=== PATIENT | female | born 1975 | race American Indian/Alaskan Native ===

== ENCOUNTER 2016-08-28 12:10 | Emergency (ER) | payer SELFPAY ==
--- NOTE | 2016-08-28 16:54 | Emergency Department Report ---
ED Female HPI - General Chief complaint: Back Pain/Injury Stated complaint: BLOOD IN URINE Time Seen by Provider: 08/28/16 16:49 Source: patient Mode of arrival: Ambulatory Limitations: No Limitations - History of Present Illness Initial comments: Patient presents with dysuria, polyuria, urinary urgency and frequency. She states that she has seen pink on toilet paper when she wipes after urinating. She states she has had a UTI in the past and this feels similar. She denies history of diabetes at this time. MD Complaint: dysuria -: Sudden Are you Now?: No Associated Symptoms: denies other symptoms - Related Data Previous Rx's Medication Instructions Recorded Last Taken Type Sulfamethoxazole/Trimethoprim 1 each PO BID #14 tablet 08/28/16 Unknown Rx [Bactrim DS TAB] Allergies Allergy/AdvReac Type Severity Reaction Status Date / Time No Known Allergies Allergy Unverified 01/30/14 22:57 ED Review of Systems ROS: Stated complaint: BLOOD IN URINE Other details as noted in HPI Constitutional: denies: chills, fever Respiratory: denies: cough, shortness of breath, wheezing Cardiovascular: denies: chest pain, palpitations Genitourinary: as per HPI, urgency, dysuria, frequency Musculoskeletal: denies: back pain, joint swelling, arthralgia Skin: denies: rash, lesions Neurological: denies: headache, weakness, paresthesias ED Past Medical Hx - Past Medical History Hx Hypertension: Yes (with ) Hx HIV: Yes (2005) Additional medical history: Irregular heart beat - Surgical History Additional Surgical History: D&C 2000, Tubaligation 2004 - Social History Smoking Status: Never Smoker Substance Use Type: None - Medications Home Medications: Home Medications Medication Instructions Recorded Confirmed Last Taken Type Sulfamethoxazole/Trimethoprim 1 each PO BID #14 tablet 08/28/16 Unknown Rx [Bactrim DS TAB] ED Physical Exam - General Limitations: No Limitations General appearance: alert, in no apparent distress - Head Head exam: Present: atraumatic, normocephalic - Respiratory Respiratory exam: Present: normal lung sounds bilaterally. Absent: respiratory distress - Cardiovascular Cardiovascular Exam: Present: regular rate, normal rhythm. Absent: systolic murmur, diastolic murmur, rubs, gallop - GI/Abdominal GI/Abdominal exam: Present: soft, normal bowel sounds - Back Exam Back exam: Present: normal inspection, full ROM. Absent: tenderness, CVA tenderness (R), CVA tenderness (L) - Neurological Exam Neurological exam: Present: alert, oriented X3 - Psychiatric Psychiatric exam: Present: normal affect, normal mood - Skin Skin exam: Present: warm, dry, intact, normal color. Absent: rash ED Course Vital Signs 08/28/16 12:20 Temperature 98.4 F Pulse Rate 95 H Respiratory 18 Rate Blood Pressure 126/64 O2 Sat by Pulse 95 Oximetry ED Medical Decision Making - Medical Decision Making Patient presents with UTI symptoms. Urinalysis WBCs are elevated I will give Bactrim twice a day 7 days. - Differential Diagnosis UTI, std Critical Care Time: No Critical care attestation.: If time is entered above; I have spent that time in minutes in the direct care of this critically ill patient, excluding procedure time. ED Disposition Clinical Impression: Urinary tract infection Disposition: DISCHARGED TO HOME OR SELFCARE Is pt being admited?: No Does the pt Need Aspirin: No Condition: Stable Instructions: Dysuria (ED), Urinary Tract Infection in Women (ED) Additional Instructions: Follow-up with your PCP if symptoms do not resolve. Follow up in the ED if nausea, fever, chills. Prescriptions: Sulfamethoxazole/Trimethoprim [Bactrim DS TAB] 1 each PO BID #14 tablet Referrals: PRIMARY CARE, [Primary Care Provider] - 3-5 Days [facility] [Outside] - 3-5 Days Time of Disposition: 18:01
[2016-08-28 17:47] LABS: Bacteria,Urine 3+ /HPF (Negative); Bilirubin,Urine NEG (Negative); Blood,Urine LG (Negative); Ketones,Urine NEG (Negative); Leukocyte Esterase,Urine LG (Negative); Mucus,Urine 2+ /HPF; Nitrite,Urine POS (Negative); Urobilinogen,Urine < 2.0 mg/dL (<2.0); WBC,Urine > 182.0 /HPF (0.0-6.0)
[2016-08-28 18:11] VITALS: BP 122/60
== END 2016-08-28 18:10 | disposition home or self-care (01) ==
LOC: ED 12:10
DX: N39.0 Urinary tract infection, site not specified (principal); I10 Essential (primary) hypertension; Z21 Asymptomatic human immunodeficiency virus [HIV] infection status; Z98.51 Tubal ligation status
CPT/HCPCS: 81001; 82962

== ENCOUNTER 2016-12-08 10:54 | Emergency (ER) | payer OTHER ==
[2016-12-08 14:07] LABS: Eosinophils % (Auto) 0.7 % (0.0-4.3)
[2016-12-08 14:20] LABS: Alanine Aminotransferase 9 units/L (7-56); Albumin 3.7 g/dL (3.9-5); Alkaline Phosphatase 81 units/L (35-129); Anion Gap 17 mmol/L; Bilirubin,Total 0.2 mg/dL (0.1-1.2); Blood Urea Nitrogen 9 mg/dL (7-17); Calcium 8.7 mg/dL (8.4-10.2); Carbon Dioxide 20 mmol/L (22-30); Chloride 103.4 mmol/L (98-107); Glucose 121 mg/dL (65-100); Potassium 3.7 mmol/L (3.6-5.0); Sodium 137 mmol/L (137-145); Total Protein 7.5 g/dL (6.3-8.2)
[2016-12-08 14:29] LABS: Hematocrit 29.8 % (30.3-42.9); Hemoglobin 8.7 gm/dl (10.1-14.3); Mean Corpuscular HGB Conc 29 % (30-34); Mean Corpuscular Hemoglobin 17 pg (28-32); Mean Corpuscular Volume 58 fl (79-97); Platelet Count 371 K/mm3 (140-440); Red Blood Count 5.12 M/mm3 (3.65-5.03); Red Cell Distribution Width 19.5 % (13.2-15.2); White Blood Count 12.6 K/mm3 (4.5-11.0)
[2016-12-08 14:30] LABS: Basophils % (Auto) 0.4 % (0.0-1.8)
[2016-12-08 15:14] LABS: Bacteria,Urine 1+ /HPF (Negative); Bilirubin,Urine NEG (Negative); Blood,Urine NEG (Negative); Ketones,Urine NEG (Negative); Leukocyte Esterase,Urine MOD (Negative); Mucus,Urine 2+ /HPF; Nitrite,Urine POS (Negative); Protein,Urine <15 mg/dL mg/dL (Negative); Urobilinogen,Urine < 2.0 mg/dL (<2.0)
--- NOTE | 2016-12-08 16:35 | Emergency Department Report ---
Entered by KERWIN TRUJILLO, acting as scribe for JOIE GONZALEZ NP. Chief Complaint: Medical Clearance Stated Complaint: MIGRAINE/NOSE BLEEDS Time Seen by Provider: 12/08/16 13:19 - HPI History of Present Illness: Patient presents to the ED c/o a headache that began 1 week ago. Associated symptoms include left underarm abscess, dizziness, night sweats and nose bleeds that began 1 month ago. Notes she is not on any retro-viral medication. Patient states that she doesn't have an infectious docto. LMP in October. - ROS Review of Systems: All other systems negative unless stated in the HPI above. - Exam Vital Signs: Vital Signs 12/08/16 12:34 Temperature 98.7 F Pulse Rate 78 Respiratory 16 Rate Blood Pressure 140/79 O2 Sat by Pulse 100 Oximetry Physical Exam: General: in no acute distress, alert and oriented x 3 Skin: abscess under left armpit MSE screening note: Focused history and physical exam performed. Due to findings the following was ordered: HIV W NUMEROUS COMPLAINTS ON NO MEDS NO FEVER ED Medical Decision Making - Lab Data Result diagrams: 12/08/16 13:47 12/08/16 13:47 - Medical Decision Making Patient seen by provider in triage area. Patient will be taken to get lab work done. ED Disposition for MSE Condition: Stable This documentation as recorded by the scribe,KERWIN TRUJILLO,accurately reflects the service I personally performed and the decisions made by ,JOIE FARRELL NP.
--- NOTE | 2016-12-09 00:56 | Emergency Department Report ---
ED Headache HPI - General Chief Complaint: Headache Stated Complaint: MIGRAINE/NOSE BLEEDS Time Seen by Provider: 12/09/16 00:50 Source: patient Exam Limitations: no limitations - History of Present Illness Initial Comments: Patient is a 41-year-old female with a history of HIV presenting with intermittent headaches, intermittent epistaxis, and night sweats for 1 month. Patient reports she is not on any HAART therapy and has not seen a primary primary care provider for her HIV in 2 years. Recently patient has no headache and her last epistaxis was one night ago. She also reports she feels a "knot" in her left axilla, which is tender to touch. Otherwise no fevers, nausea, vomiting, vision changes, hearing changes, cough, sore throat, chest pain, shortness of breath, abdominal pain, changes in appetite, weight loss, travel, or sick contacts Timing/Duration: waxing and waning, other (1 month) Quality: mild Recent Head Trauma: frequent headaches, other (no trauma) Modifying Factors: improves with: medication Associated Symptoms: other (night sweats) Allergies/Adverse Reactions: Allergies No Known Allergies Allergy (Verified 12/09/16 01:05) Home Medications: Ambulatory Orders Sulfamethoxazole/Trimethoprim [Bactrim DS TAB] 1 each PO BID #14 tablet ED Review of Systems ROS: Stated complaint: MIGRAINE/NOSE BLEEDS Other details as noted in HPI Comment: All other systems reviewed and negative ED Past Medical Hx - Past Medical History Previous Medical History?: Yes Hx Hypertension: Yes (with ) Hx HIV: Yes (2005; on no medications) Additional medical history: Irregular heart beat - Surgical History Additional Surgical History: D&C 2000, Tubaligation 2004 - Social History Smoking Status: Never Smoker Substance Use Type: None - Medications Home Medications: Home Medications Medication Instructions Recorded Confirmed Last Taken Type Sulfamethoxazole/Trimethoprim 1 each PO BID #14 tablet 12/09/16 Unknown Rx [Bactrim DS TAB] ED Physical Exam - General Limitations: No Limitations General appearance: alert, in no apparent distress - Head Head exam: Present: atraumatic, normocephalic - Eye Eye exam: Present: normal appearance, PERRL, EOMI. Absent: scleral icterus Pupils: Present: normal accommodation. Absent: irregular, unequal - ENT ENT exam: Present: normal exam, mucous membranes moist - Neck Neck exam: Present: normal inspection. Absent: tenderness, meningismus, lymphadenopathy - Respiratory Respiratory exam: Present: normal lung sounds bilaterally. Absent: respiratory distress - Cardiovascular Cardiovascular Exam: Present: regular rate, normal rhythm, systolic murmur. Absent: irregular rhythm, diastolic murmur, rubs, gallop - GI/Abdominal GI/Abdominal exam: Present: soft, normal bowel sounds. Absent: distended, tenderness, guarding, rebound - Extremities Exam Extremities exam: Present: normal inspection, other (2cm swelling palpated in the L axilla, tender to touch, no fluctuance, no erythema) - Back Exam Back exam: Present: normal inspection - Neurological Exam Neurological exam: Present: alert, oriented X3 - Psychiatric Psychiatric exam: Present: normal affect, normal mood - Skin Skin exam: Present: warm, dry, intact, normal color. Absent: rash ED Course Vital Signs 12/08/16 12/08/16 12/09/16 12:34 22:57 01:03 Temperature 98.7 F 98.7 F 98.8 F Pulse Rate 78 93 H 88 Respiratory 16 18 20 Rate Blood Pressure 140/79 136/81 Blood Pressure 132/78 [Left] O2 Sat by Pulse 100 97 97 Oximetry 12/09/16 01:07 Temperature Pulse Rate Respiratory 20 Rate Blood Pressure Blood Pressure [Left] O2 Sat by Pulse 98 Oximetry ED Medical Decision Making - Lab Data Result diagrams: 12/08/16 13:47 12/08/16 13:47 - Radiology Data Radiology results: pending, image reviewed CXR: no acute focal consolidations as visualized by me - Medical Decision Making I discussed with the patient the importance of follow up with her HIV status. Pt understands and will follow up with the [facility] services. I instructed the patient she needs another PPD, even though she had a negative results within the last year, given her new symptoms. Pt understood. Critical care attestation.: If time is entered above; I have spent that time in minutes in the direct care of this critically ill patient, excluding procedure time. ED Disposition Clinical Impression: Headache, UTI (urinary tract infection) Disposition: DISCHARGED TO HOME OR SELFCARE Is pt being admited?: No Condition: Stable Instructions: Tension Headache (ED), Urinary Tract Infection in Women (ED) Prescriptions: Sulfamethoxazole/Trimethoprim [Bactrim DS TAB] 1 each PO BID #14 tablet Referrals: PRIMARY CARE, [Primary Care Provider] - 3-5 Days
[2016-12-09 01:04] VITALS: BP 132/78
[2016-12-09] MEDS: ROCEPHIN/NS 2 GM/100 ML 2 GM/100 ML BAG IV ONE (01:29)
[2016-12-09] MEDS: BACTRIM DS PO ONE (01:36)
--- NOTE | 2016-12-09 08:27 | XRay Report ---
ROUTINE CHEST, TWO VIEWS: PA and lateral views demonstrate the heart and mediastinal contour to be of normal size and shape. The lungs are clear and fully expanded and the soft tissues and bony structures are normal. IMPRESSION: Normal study.
[2016-12-11 09:49] LABS: HIV-1 RNA QN PCR 2.86 Log cps/mL (<1.30)
== END 2016-12-09 01:53 | disposition home or self-care (01) ==
LOC: ED 10:54
DX: R51 Headache (principal); N39.0 Urinary tract infection, site not specified; Z98.51 Tubal ligation status
CPT/HCPCS: 36415; 71020; 80053; 81001; 81025; 85025; 87536; J0696

== ENCOUNTER 2019-09-11 16:30 | Emergency (ER) | payer SELFPAY ==
[2019-09-11 16:38] VITALS: BP 127/83
--- NOTE | 2019-09-11 17:25 | Emergency Department Report ---
Upper Respiratory HPI - HPI Chief Complaint: Upper Respiratory Infection Stated Complaint: FLU SX Time Seen by Provider: 09/11/19 17:18 Duration: 4 Days URI Symptoms: Rhinorrhea: Yes, Sore Throat: No, Ear Pain: No, Cough: Yes, Shortness of Breath: No, Sick Contacts: No, Unable to Take Fluids: No, Urine Output Abnormal: No, Listless Behavior: No Other History: This is a 43-year-old female nontoxic well in [facility] with no signs of distress presents with dry nonproductive cough and sore throat x4 days. Patient denies any chest pain, shortness of breathe, fever, chills, nausea, vomiting, headache, stiff neck, abdominal pain, numbness or tingling. Patient denies any recent travels, long car rides, or recent hospital stays. Denies any allergies or significant PMH. - Home Meds and Allergies Home Medications: Previous Rx's Medication Instructions Recorded Last Taken Type Sulfamethoxazole/Trimethoprim 1 each PO BID #14 tablet 12/09/16 Unknown Rx [Bactrim DS TAB] Azithromycin [Zithromax Z-VALERIO] 250 mg PO DAILY #6 tablet 09/11/19 Unknown Rx Benzonatate [Tessalon Perles] 100 mg PO Q8HR PRN #10 capsule 09/11/19 Unknown Rx Ibuprofen [Motrin] 600 mg PO Q8H PRN #20 tablet 09/11/19 Unknown Rx Allergies/Adverse Reactions: Allergies Allergy/AdvReac Type Severity Reaction Status Date / Time No Known Allergies Allergy Verified 12/09/16 01:05 ED Review of Systems ROS: Stated complaint: FLU SX Other details as noted in HPI Constitutional: denies: chills, fever Eyes: denies: eye pain, eye discharge, vision change ENT: throat pain, congestion. denies: ear pain Respiratory: cough. denies: shortness of breath, wheezing Cardiovascular: denies: chest pain, palpitations Endocrine: no symptoms reported Gastrointestinal: denies: abdominal pain, nausea, diarrhea Genitourinary: denies: urgency, dysuria, discharge Musculoskeletal: denies: back pain, joint swelling, arthralgia Skin: denies: rash, lesions Neurological: denies: headache, weakness, paresthesias Psychiatric: denies: anxiety, depression Hematological/Lymphatic: denies: easy bleeding, easy bruising ED Past Medical Hx - Past Medical History Previous Medical History?: Yes Hx Hypertension: Yes (with ) Hx HIV: Yes (2006; on no medications) Additional medical history: Irregular heart beat - Surgical History Past Surgical History?: Yes Additional Surgical History: D&C 2000, Tubaligation 2004 - Social History Smoking Status: Never Smoker Substance Use Type: Alcohol - Medications Home Medications: Home Medications Medication Instructions Recorded Confirmed Last Taken Type Sulfamethoxazole/Trimethoprim 1 each PO BID #14 tablet 12/09/16 Unknown Rx [Bactrim DS TAB] Azithromycin [Zithromax Z-VALERIO] 250 mg PO DAILY #6 tablet 09/11/19 Unknown Rx Benzonatate [Tessalon Perles] 100 mg PO Q8HR PRN #10 capsule 09/11/19 Unknown Rx Ibuprofen [Motrin] 600 mg PO Q8H PRN #20 tablet 09/11/19 Unknown Rx ED Bronchiolitis Physical Exam - Exam General: Vital signs noted. No distress. Alert and acting appropriately. Neurologic: Alert and oriented, no deficits. Musculoskeletal: Unremarkable. ED Physical Exam - General Limitations: No Limitations General appearance: alert, in no apparent distress - Head Head exam: Present: atraumatic, normocephalic - Eye Eye exam: Present: normal appearance - Expanded ENT Exam Expanded Ear exam: Present: normal external inspection Mouth exam: Present: normal external inspection. Absent: drooling, trismus, muffled voice Teeth exam: Present: normal inspection Throat exam: Positive: tonsillar erythema, other (uvual midline). Negative: tonsillomegaly, tonsillar exudate, R peritonsillar mass, L peritonsillar mass - Neck Neck exam: Present: normal inspection, full ROM. Absent: tenderness, meningismus, lymphadenopathy - Respiratory Respiratory exam: Present: normal lung sounds bilaterally. Absent: respiratory distress, wheezes, rales, rhonchi, stridor, chest wall tenderness, accessory muscle use, decreased breath sounds, prolonged expiratory - Cardiovascular Cardiovascular Exam: Present: regular rate, normal rhythm, normal heart sounds. Absent: irregular rhythm, systolic murmur, diastolic murmur, rubs, gallop - Extremities Exam Extremities exam: Present: normal inspection, full ROM - Back Exam Back exam: Present: normal inspection, full ROM - Neurological Exam Neurological exam: Present: alert, oriented X3, normal gait - Psychiatric Psychiatric exam: Present: normal affect, normal mood - Skin Skin exam: Present: warm, dry, intact, normal color. Absent: rash ED Course Vital Signs 09/11/19 16:33 Temperature 98.9 F Pulse Rate 95 H Respiratory 18 Rate Blood Pressure 127/83 O2 Sat by Pulse 99 Oximetry - Reevaluation(s) Reevaluation #1: 09/11/19 17:22 Patient is speaking in full sentences with no signs of distress noted. ED Medical Decision Making - Medical Decision Making 49-year-old female that presents with bronchitis like symptoms and pharyngitis. Patient is stable and was examined by me. Will treat with Zpack due to continuing and worsening of symptoms. Vital signs are stable. Patient was instructed to Follow-up with a primary care doctor in 3-5 days or if symptoms worsen and continue return to emergency room as soon as possible. At time of discharge, the patient does not seem toxic or ill in appearance. No acute signs of distress noted. Patient agrees to discharge treatment plan of care. No further questions noted by the patient. Critical care attestation.: If time is entered above; I have spent that time in minutes in the direct care of this critically ill patient, excluding procedure time. ED Disposition Clinical Impression: Bronchitis Pharyngitis Qualifiers: Pharyngitis/tonsillitis etiology: unspecified etiology Qualified Code(s): J02.9 - Acute pharyngitis, unspecified Disposition: -01 TO HOME OR SELFCARE Is pt being admited?: No Does the pt Need Aspirin: No Condition: Stable Instructions: Pharyngitis (ED), Acute Bronchitis (ED) Additional Instructions: Follow-up with a primary care doctor in 3-5 days or if symptoms worsen and continue return to emergency room as soon as possible. Prescriptions: Ibuprofen [Motrin] 600 mg PO Q8H PRN #20 tablet PRN Reason: Pain Benzonatate [Tessalon Perles] 100 mg PO Q8HR PRN #10 capsule PRN Reason: Cough Azithromycin [Zithromax Z-VALERIO] 250 mg PO DAILY #6 tablet Referrals: DAO FUNEZ MD [Primary Care Provider] - 3-5 Days SHEREE ASCENCIO MD [Staff Physician] - 3-5 Days [facility] [Outside] - 3-5 Days Forms: Work/School Release Form(ED)
--- NOTE | 2019-09-11 18:10 | XRay Report ---
CHEST 2 VIEWS INDICATION / CLINICAL INFORMATION: cough. COMPARISON: 12/09/16 FINDINGS: SUPPORT DEVICES: None. HEART / MEDIASTINUM: No significant abnormality. LUNGS / PLEURA: No significant pulmonary or pleural abnormality. No pneumothorax. ADDITIONAL FINDINGS: No significant additional findings. IMPRESSION: 1. No acute findings. No significant change. Signer Name: Garfield Abarca MD Signed: 09/11/2019 6:05 PM Workstation Name: [id number]
== END 2019-09-11 18:40 | disposition home or self-care (01) ==
LOC: ED 16:30
DX: J40 Bronchitis, not specified as acute or chronic (principal); J02.9 Acute pharyngitis, unspecified; I10 Essential (primary) hypertension; Z98.51 Tubal ligation status; Z79.899 Other long term (current) drug therapy
CPT/HCPCS: 71046